=== PATIENT | female | born 1980 | race Caucasian/White ===

== ENCOUNTER 2019-06-19 13:55 | Emergency (ER) | payer OTHER, BC ==
[2019-06-19 14:04] VITALS: BP 148/95
[2019-06-19] MEDS ORDERED: IBUPROFEN 600 MG TABLET PO STA (14:17)
--- NOTE | 2019-06-19 14:49 | XRAY Report ---
Reason: twisted ankle Procedure Date: 06/19/2019 Accession Number: [id number] / [id number] Procedure: XR - Ankle 3 View RT CPT Code: Final Report FULL RESULT: EXAM: RIGHT ANKLE RADIOGRAPHY EXAM DATE: 06/19/2019 02:29 PM. CLINICAL HISTORY: Twisted ankle. COMPARISON: None. TECHNIQUE: 3 views. FINDINGS: Bones: Large plantar calcaneal spur. No fractures or bone lesions. Joints: No effusion. No subluxations. The ankle mortise is normally aligned. Soft Tissues: Moderate soft tissue swelling. IMPRESSION: Moderate soft tissue swelling. Large plantar calcaneal spur. No definite acute fracture. If symptoms persist suggest follow-up imaging in 7 -14 days. RADIA
--- NOTE | 2019-06-19 14:54 | ED Physician Documentation ---
PD HPI LOWER EXT INJURY - Stated complaint Stated Complaint: RT ANKLE PX - GLF - Chief complaint Chief Complaint: Trauma Ext - History obtained from History obtained from: Patient - History of Present Illness PD HPI LOW EXT INJURY LOCATION: Right, Ankle Type of injury: Twist (She states she tripped on some wires at work that were taped down with some tape but had become loosened. It caused an inversion twisting of her ankle in a forward fall onto her side and right gluteal. She was having pain with walking but was still able to ambulate. She noticed swelling develop over the next couple of hours. It is gotten more sore with the swelling. She denies other notable injuries. She has minimal tenderness in her buttock.) Where injury occurred: Work Timing - onset: How many hours ago (2), Today Timing - duration: Hours (2) Timing - details: Abrupt onset, Still present Worsened by: Palpating, Other (walking). No: Moving Associated symptoms: Tingling. 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 06/19/19 - Allergies Allergies/Adverse Reactions: Allergies Allergy/AdvReac Type Severity Reaction Status Date / Time No Known Drug Allergies Allergy Verified 06/19/19 14:04 - Social History Does the pt smoke?: No Smoking Status: Never smoker Does the pt have substance abuse?: No PD ED PE NORMAL - Vitals Vital signs reviewed: Yes - General General: Alert and oriented X 3, No acute distress, Well developed/nourished - Back Back: No spinal TTP - Derm Derm: Normal color, Warm and dry - Extremities Extremities: Other (The right ankle has tenderness predominantly over the anterior talofibular ligament area. There is some general swelling in the ankle both medial and lateral. There is really no medial tenderness. The Achilles is firm and intact. She is able to flex and extend at the ankle reasonably. There is some pain and guarding with inversion stress testing but no gross laxity felt. Normal sensation color and cap refill at the toes. No tenderness at the midfoot or toes.) - Neuro Neuro: Alert and oriented X 3, No motor deficit, No sensory deficit Results - Vitals Vitals: Vital Signs - 24 hr 06/19/19 13:59 Temperature 37.1 C Heart Rate 79 Respiratory 16 Rate Blood Pressure 148/95 H O2 Saturation 98 Oxygen O2 Source Room air - Rads (name of study) right ankle Radiology: Prelim report reviewed (Large calcaneal spur but no obvious fracture noted. Soft tissue swelling is seen.), See rad report PD MEDICAL DECISION MAKING - ED course Complexity details: reviewed results, considered differential, d/w patient Departure - Departure Disposition: 01 Home, Self Care Clinical Impression: Ankle sprain Qualifiers: Encounter type: initial encounter Involved ligament of ankle: anterior talofibular ligament Laterality: right Qualified Code(s): S93.491A - Sprain of other ligament of right ankle, initial encounter Condition: Stable Record reviewed to determine appropriate education?: Yes Instructions: ED Sprain Ankle W X Ray Follow-Up: Rajeev Bruno MD [Provider Admit Priv/Credential] - Comments: No signs of fracture on your x-ray. It does seem like a sprain of the anterior talofibular ligament. Use the Prashant wrap for swelling and elevate and rest your ankle often. Minimal walking on it today and tomorrow if you can. Use the ankle brace when up and around for the next 7 to 10 days to support the ligaments for healing. Recheck if not improved well over the next 7 to 10 days and pretty much resolved during that time. The swelling should decrease over 2 to 3 days. Tylenol ibuprofen as needed for pains. Discharge Date/Time: 06/19/19 15:12
== END 2019-06-19 15:12 | disposition home or self-care (01) ==
LOC: ED 13:55
DX: S93.491A Sprain of other ligament of right ankle, initial encounter (principal); W01.0XXA Fall on same level from slipping, tripping and stumbling without subsequent striking against object, initial encounter; Y93.01 Activity, walking, marching and hiking; Y92.89 Other specified places as the place of occurrence of the external cause; Y99.0 Civilian activity done for income or pay; E11.9 Type 2 diabetes mellitus without complications; Z79.84 Long term (current) use of oral hypoglycemic drugs
CPT/HCPCS: 1040M; 73610; 99283; 99284; A9270

== ENCOUNTER 2019-08-22 13:29 | Emergency (ER) | payer BC ==
[2019-08-22 14:04] LABS: BASOPHILS # (AUTO) 0.1 10^3/uL (0.0-0.1); EOSINOPHILS # (AUTO) 0.1 10^3/uL (0.0-0.7); LYMPHOCYTES # (AUTO) 2.5 10^3/uL (1.5-3.5); MEAN CORPUSCULAR HEMOGLOBIN 27.3 pg (27.0-31.0); MEAN CORPUSCULAR VOLUME 82.7 fL (81.0-99.0); MEAN PLATELET VOLUME 10.7 fL (7.9-10.8); MONOCYTES # (AUTO) 0.3 10^3/uL (0.0-1.0); MONOCYTES % (AUTO) 4.6 %; NEUTROPHILS % (AUTO) 57.1 %; PLT - PLATELET COUNT 215 10^3/uL (130-450); RED BLOOD COUNT 5.49 10^6/uL (4.20-5.40); RED CELL DISTRIBUTION WIDTH 12.6 % (12.0-15.0)
[2019-08-22 14:11] LABS: VBG BASE EXCESS -1.8 mmol/L (-2 - +2); VBG PCO2 36.7 mmHg (41-51); VBG PH 7.404 (7.31-7.41); VBG PO2 53.1 mmHg (25-47); VBG TOTAL CO2 23.6 mmol/L (24-29)
[2019-08-22 14:16] LABS: ALBUMIN 3.6 g/dL (3.2-5.5); BILIRUBIN,TOTAL 0.6 mg/dL (0.2-1.0); CALCIUM 9.2 mg/dL (8.5-10.3); CREATININE 0.6 mg/dL (0.4-1.0); TOTAL PROTEIN 7.3 g/dL (6.7-8.2)
[2019-08-22] MEDS ORDERED: SODIUM CHLORIDE 0.9% 1,000 ML IV STA ×2 (14:21→15:04)
[2019-08-22] MEDS ORDERED: INSULIN REGULAR HUMAN 100 UNIT/1 ML 10 ML MDV IVP STA ×2 (14:21→15:04)
--- NOTE | 2019-08-22 14:22 | ED Physician Documentation ---
History of Present Illness - Stated complaint Stated Complaint: High Blood Sugar - Chief complaint Chief Complaint: General - History obtained from History obtained from: Patient (39-year-old woman who was diagnosed with diabetes about 6 months ago. She had some trouble obtaining primary care follow-up mostly because of coronavirus. Currently on metformin, 500 mg twice a day and kind of a varying dose of Humulin 2-3 times a day. Today for unclear reasons her blood sugar was quite high, greater than 700. She feels fatigued and with some blurry vision and polyuria. Denies sore throat, runny nose, cough. No new meds.) Review of Systems Constitutional: reports: Fatigue. 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 06/19/19 Insulin Glargine [Lantus Solostar] 20 unit SUBQ DAILY #3 pen 08/22/19 Metformin HCl 1,000 mg PO BID #60 tablet 08/22/19 Sulfamethoxazole/Trimethoprim 1 each PO BID 7 Days #14 tablet 08/22/19 [Sulfamethoxazole-Tmp Ds Tablet] - Allergies Allergies/Adverse Reactions: Allergies Allergy/AdvReac Type Severity Reaction Status Date / Time No Known Drug Allergies Allergy Verified 08/22/19 13:36 - Social History Does the pt smoke?: No Smoking Status: Never smoker Does the pt have substance abuse?: No PD ED PE NORMAL - Vitals Vital signs reviewed: Yes - General General: Alert and oriented X 3, No acute distress - Abdomen Abdomen: Soft, Non tender - Back Back: No spinal TTP - Extremities Extremities: No edema, No calf tenderness / cord - Neuro Neuro: Alert and oriented X 3, Normal speech Results - Vitals Vitals: Vital Signs - 24 hr 08/22/19 08/22/19 08/22/19 13:37 14:50 15:16 Temperature 36.8 C 37.8 C H 36.5 C Heart Rate 101 H 83 93 Respiratory 20 16 16 Rate Blood Pressure 141/101 H 135/93 H 128/88 H O2 Saturation 98 98 98 08/22/19 08/22/19 15:53 16:18 Temperature 36.3 C L 36.4 C L Heart Rate 90 86 Respiratory 16 16 Rate Blood Pressure 138/87 H 140/88 H O2 Saturation 99 99 Oxygen O2 Source Room air - Labs Labs: Laboratory Tests 08/22/19 08/22/19 08/22/19 12:50 12:50 12:50 WBC 7.0 RBC 5.49 H Hgb 15.0 Hct 45.4 MCV 82.7 MCH 27.3 MCHC 33.0 RDW 12.6 Plt Count 215 MPV 10.7 Neut # (Auto) 4.0 Lymph # (Auto) 2.5 [place] # (Auto) 0.3 Eos # (Auto) 0.1 Baso # (Auto) 0.1 Absolute Nucleated RBC 0.00 Nucleated RBC % 0.0 VBG pH VBG pCO2 VBG pO2 VBG HCO3 VBG Total CO2 VBG O2 Saturation VBG Base Excess Sodium 131 L Potassium 4.4 Chloride 97 L Carbon Dioxide 23 Anion Gap 11.0 BUN 18 Creatinine 0.6 Estimated GFR (MDRD) 111 Glucose 605 H* POC Whole Bld Glucose Glycated Hemoglobin Estim Average Glucose Calcium 9.2 Total Bilirubin 0.6 AST 14 ALT 23 Alkaline Phosphatase 129 H Total Protein 7.3 Albumin 3.6 Globulin 3.7 Albumin/Globulin Ratio 1.0 Lipase 30 Urine Color Urine Clarity Urine pH Ur Specific [place] Urine Protein Urine Glucose (UA) Urine Ketones Urine Occult Blood Urine Nitrite Urine Bilirubin Urine Urobilinogen Ur Leukocyte Esterase Urine RBC Urine WBC Urine WBC Clumps Ur Squamous Epith Cells Urine Bacteria Ur Microscopic Review Urine Culture Comments Serum Ketones NEGATIVE 08/22/19 08/22/19 08/22/19 13:50 14:05 14:57 WBC RBC Hgb Hct MCV MCH MCHC RDW Plt Count MPV Neut # (Auto) Lymph # (Auto) [place] # (Auto) Eos # (Auto) Baso # (Auto) Absolute Nucleated RBC Nucleated RBC % VBG pH 7.404 VBG pCO2 36.7 L VBG pO2 53.1 H VBG HCO3 22.4 L VBG Total CO2 23.6 L VBG O2 Saturation 88.3 H VBG Base Excess -1.8 Sodium Potassium Chloride Carbon Dioxide Anion Gap BUN Creatinine Estimated GFR (MDRD) Glucose POC Whole Bld Glucose 415 H Glycated Hemoglobin 13.4 H Estim Average Glucose 338 H Calcium Total Bilirubin AST ALT Alkaline Phosphatase Total Protein Albumin Globulin Albumin/Globulin Ratio Lipase Urine Color Urine Clarity Urine pH Ur Specific [place] Urine Protein Urine Glucose (UA) Urine Ketones Urine Occult Blood Urine Nitrite Urine Bilirubin Urine Urobilinogen Ur Leukocyte Esterase Urine RBC Urine WBC Urine WBC Clumps Ur Squamous Epith Cells Urine Bacteria Ur Microscopic Review Urine Culture Comments Serum Ketones 08/22/19 15:02 WBC RBC Hgb Hct MCV MCH MCHC RDW Plt Count MPV Neut # (Auto) Lymph # (Auto) [place] # (Auto) Eos # (Auto) Baso # (Auto) Absolute Nucleated RBC Nucleated RBC % VBG pH VBG pCO2 VBG pO2 VBG HCO3 VBG Total CO2 VBG O2 Saturation VBG Base Excess Sodium Potassium Chloride Carbon Dioxide Anion Gap BUN Creatinine Estimated GFR (MDRD) Glucose POC Whole Bld Glucose Glycated Hemoglobin Estim Average Glucose Calcium Total Bilirubin AST ALT Alkaline Phosphatase Total Protein Albumin Globulin Albumin/Globulin Ratio Lipase Urine Color YELLOW Urine Clarity HAZY Urine pH 6.0 Ur Specific [place] 1.010 Urine Protein NEGATIVE Urine Glucose (UA) >=1000 H Urine Ketones NEGATIVE Urine Occult Blood NEGATIVE Urine Nitrite POSITIVE H Urine Bilirubin NEGATIVE Urine Urobilinogen 0.2 (NORMAL) Ur Leukocyte Esterase NEGATIVE Urine RBC 0-5 Urine WBC 11-25 H Urine WBC Clumps PRESENT Ur Squamous Epith Cells RARE Squamous Urine Bacteria Many H Ur Microscopic Review INDICATED Urine Culture Comments INDICATED Serum Ketones PD MEDICAL DECISION MAKING - ED course ED course: 39-year-old woman with type 2 diabetes presents with uncontrolled blood sugars, but no evidence of DKA. She was given divided doses of fluid boluses here and IV insulin with improvement into her normal range. We will up her metformin and start her on Lantus. Departure - Departure Disposition: 01 Home, Self Care Clinical Impression: Cystitis Uncontrolled type 2 diabetes mellitus Qualifiers: Glycemic state: with hyperglycemia Qualified Code(s): E11.65 - Type 2 diabetes mellitus with hyperglycemia Condition: Good Record reviewed to determine appropriate education?: Yes Instructions: Insulin Glargine injection Prescriptions: Insulin Glargine [Lantus Solostar] 20 unit SUBQ DAILY #3 pen Metformin HCl 1,000 mg PO BID #60 tablet Sulfamethoxazole/Trimethoprim [Sulfamethoxazole-Tmp Ds Tablet] 1 each PO BID 7 Days #14 tablet Comments: Continue your efforts to try to establish primary care as soon as possible. Return for new or worsening symptoms. I am increasing your metformin to 1000 mg twice a day, also starting you on a baseline dose of Lantus. You can increase the Lantus if you are blood sugars continue to be out of control, you can go up a couple units at a time every day.
[2019-08-22 14:53] LABS: HB2 TOTAL 15.9 g/dL; HEMOGLOBIN A1C 1.96 g/dL; HEMOGLOBIN A1C % 13.4 % (4.6-6.2)
[2019-08-22 15:22] LABS: BILIRUBIN,URINE NEGATIVE (NEGATIVE); GLUCOSE, URINE (UA) >=1000 mg/dL (NEGATIVE); KETONES,URINE (UA) NEGATIVE (NEGATIVE); LEUKOCYTE ESTERASE, URINE NEGATIVE (NEGATIVE); NITRITE,URINE POSITIVE (NEGATIVE); OCCULT BLOOD,URINE NEGATIVE (NEGATIVE); PROTEIN,URINE NEGATIVE (NEGATIVE); UROBILINOGEN,URINE 0.2 (NORMAL) E.U./dL (NORMAL)
[2019-08-22 15:29] LABS: BACTERIA,URINE Many /HPF (None Seen); CLARITY,URINE HAZY (CLEAR); RBC,URINE 0-5 /HPF (0-5); SQUAMOUS EPITHELIAL CELL,UR RARE Squamous (<= Few); WBC CLUMPS,URINE PRESENT
[2019-08-22 16:19] VITALS: BP 140/88
== END 2019-08-22 16:19 | disposition home or self-care (01) ==
LOC: ED 13:29
DX: E11.65 Type 2 diabetes mellitus with hyperglycemia (principal); Z79.4 Long term (current) use of insulin
CPT/HCPCS: 36415; 80053; 81001; 82009; 82803; 83036; 83690; 85025; 87077; 87086; 87181; 96360; 96361; 99283; 99284; J1815; 81003

== ENCOUNTER 2019-11-05 15:34 | Outpatient (CLI) | payer BC ==
[2019-11-05 18:29] LABS: BASOPHILS # (AUTO) 0.1 10^3/uL (0.0-0.1); BASOPHILS % (AUTO) 0.8 %; EOSINOPHILS # (AUTO) 0.2 10^3/uL (0.0-0.7); EOSINOPHILS % (AUTO) 2.5 %; HGB - HEMOGLOBIN 13.7 g/dL (12.0-16.0); LYMPHOCYTES # (AUTO) 2.7 10^3/uL (1.5-3.5); LYMPHOCYTES % (AUTO) 29.3 %; MEAN CORPUSCULAR HEMOGLOBIN 27.5 pg (27.0-31.0); MEAN CORPUSCULAR HGB CONC 32.5 g/dL (32.0-36.0); MEAN CORPUSCULAR VOLUME 84.4 fL (81.0-99.0); MEAN PLATELET VOLUME 10.5 fL (7.9-10.8); MONOCYTES # (AUTO) 0.5 10^3/uL (0.0-1.0); MONOCYTES % (AUTO) 5.6 %; NEUTROPHILS # (AUTO) 5.7 10^3/uL (1.5-6.6); NEUTROPHILS % (AUTO) 61.5 %; PLT - PLATELET COUNT 289 10^3/uL (130-450); RED BLOOD COUNT 4.99 10^6/uL (4.20-5.40); WHITE BLOOD COUNT 9.3 x10^3/uL (4.8-10.8)
[2019-11-05 18:30] LABS: ALBUMIN 3.9 g/dL (3.2-5.5); ALBUMIN/GLOBULIN RATIO 0.9 (1.0-2.2); BILIRUBIN,TOTAL 0.3 mg/dL (0.2-1.0); CALCIUM 9.2 mg/dL (8.5-10.3); CREATININE 0.7 mg/dL (0.4-1.0); TOTAL PROTEIN 8.1 g/dL (6.7-8.2)
== END 2019-11-05 23:59 | disposition home or self-care (01) ==
LOC: LAB.R 15:34
PROVIDERS: ATTEND Nurse Practitioner Family
DX: E86.0 Dehydration (principal); R50.9 Fever, unspecified; Z20.828 Contact with and (suspected) exposure to other viral communicable diseases
CPT/HCPCS: 80053; 85025

== ENCOUNTER 2019-11-15 10:41 | Outpatient (CLI) | payer BC ==
[2019-11-15 10:54] LABS: BASOPHILS # (AUTO) 0.1 10^3/uL (0.0-0.1); BASOPHILS % (AUTO) 0.8 %; EOSINOPHILS # (AUTO) 0.3 10^3/uL (0.0-0.7); EOSINOPHILS % (AUTO) 2.9 %; HGB - HEMOGLOBIN 12.8 g/dL (12.0-16.0); LYMPHOCYTES # (AUTO) 3.4 10^3/uL (1.5-3.5); LYMPHOCYTES % (AUTO) 37.5 %; MEAN CORPUSCULAR HEMOGLOBIN 27.5 pg (27.0-31.0); MEAN CORPUSCULAR HGB CONC 32.5 g/dL (32.0-36.0); MEAN CORPUSCULAR VOLUME 84.5 fL (81.0-99.0); MEAN PLATELET VOLUME 9.3 fL (7.9-10.8); MONOCYTES # (AUTO) 0.4 10^3/uL (0.0-1.0); MONOCYTES % (AUTO) 4.6 %; NEUTROPHILS # (AUTO) 4.9 10^3/uL (1.5-6.6); NEUTROPHILS % (AUTO) 53.8 %; PLT - PLATELET COUNT 273 10^3/uL (130-450); RED BLOOD COUNT 4.66 10^6/uL (4.20-5.40); RED CELL DISTRIBUTION WIDTH 12.9 % (12.0-15.0); WHITE BLOOD COUNT 9.1 x10^3/uL (4.8-10.8)
[2019-11-15 11:12] LABS: ALBUMIN 3.6 g/dL (3.2-5.5); ALKALINE PHOSPHATASE 92 IU/L (42-121); ALT ALANINE AMINOTRANSFERASE 23 IU/L (10-60); AST ASPARTATE AMINOTRANSFERASE 12 IU/L (10-42); BILIRUBIN,TOTAL 0.4 mg/dL (0.2-1.0); BUN - BLOOD UREA NITROGEN 17 mg/dL (6-20); CARBON DIOXIDE - CO2 29 mmol/L (21-32); CHLORIDE 102 mmol/L (101-111); CHOL/HDL RATIO 3.4 (<4.4); CHOLESTEROL 129 mg/dL; CREATININE 0.6 mg/dL (0.4-1.0); GLUCOSE 117 mg/dL (70-100); HDL CHOLESTEROL 38 mg/dL; LDL CHOLESTEROL,CALCULATED 52 mg/dL; LDL/HDL RATIO 1.4 (<4.4); SODIUM 139 mmol/L (135-145); TOTAL PROTEIN 7.1 g/dL (6.7-8.2); VLDL CHOLESTEROL 39 mg/dL
[2019-11-15 11:16] LABS: CREATININE,URINE 89.7 mg/dL; MICROALBUM/CREATININE RATIO,UR 46.8 ug/mg (<30.0); MICROALBUMIN,URINE 4.2 mg/dL (0-300.0)
[2019-11-15 12:01] LABS: HEMOGLOBIN A1c% 8.8 % (4.27-6.07)
== END 2019-11-15 10:42 | disposition home or self-care (01) ==
LOC: LAB 10:41
PROVIDERS: ATTEND Physician Assistant
DX: E11.65 Type 2 diabetes mellitus with hyperglycemia (principal); Z79.4 Long term (current) use of insulin
CPT/HCPCS: 36415; 80053; 80061; 82043; 82570; 82607; 83036; 83721; 85025

== ENCOUNTER 2019-11-18 11:40 | Outpatient (CLI) | payer BC | END 2019-11-18 11:41 | disposition home or self-care (01) | LOC: LAB 11:40 | PROVIDERS: ATTEND Physician Assistant | DX: R11.2 Nausea with vomiting, unspecified (principal); E11.65 Type 2 diabetes mellitus with hyperglycemia | CPT/HCPCS: 36415; 81599; 83690; 84681 ==

== ENCOUNTER 2019-11-19 19:44 | Emergency (ER) | payer BC ==
--- NOTE | 2019-11-19 20:04 | ED Physician Documentation ---
PD HPI CHEST PAIN - Stated complaint Stated Complaint: CHEST PX - Chief complaint Chief Complaint: Cardiac - History obtained from History obtained from: Patient - History of Present Illness Timing - onset: Today (this morning) Timing - onset during: Rest Timing - details: Gradual onset Pain level now: 3 Quality: Other (burning) Location: Substernal, Epigastric Radiation: Other (radiates to left flank) Improved by: Nothing Worsened by: Other (no exacerbating factors) Associated symptoms: Nausea, Vomiting. No: Shortness of air, Diaphoresis, Feeling faint / dizzy, General Weakness, Palpitations, Cough Similar symptoms before: Has not had sx before Recently seen: Not recently seen - Additional information Additional information: woke up this morning with midline chest burning pain, with nausea and vomiting. had outpatient testing recently including blood tests 11/14 and lipase yesterday which was 104; patient was told pancreatitis was suspected and was to have outpatient epigastric US this evening but she presents to ED due to worsening pain. Review of Systems Constitutional: denies: Fever, Chills, Sweats Cardiac: reports: Chest pain / pressure. denies: Palpitations, Pedal edema, Calf pain Respiratory: reports: Reviewed and negative GI: reports: Abdominal Pain, Nausea, Vomiting. 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 - Past Surgical History Past Surgical History: Yes General: Cholecystectomy /HEATER HELPER: Hysterectomy - Present Medications Home Medications: Ambulatory Orders Medication Instructions Recorded Confirmed Metformin HCl 1,000 mg PO BID #60 tablet 08/22/19 10/18/19 Insulin Aspart [NovoLOG] 3 - 14 unit SUBQ TIDWM PRN 10/18/19 10/18/19 Insulin Glargine [Lantus Solostar] 30 unit SUBQ DAILY 10/18/19 10/18/19 Metoclopramide [Reglan] 10 mg PO Q6H PRN 10/18/19 10/18/19 Semaglutide [Ozempic] 0.25 mg SQ Q7D 10/18/19 10/18/19 Triamcinolone Acetonide 0.1% 1 gm TP DAILY 10/18/19 10/18/19 [Triamcinolone Acetonide] Lidocaine Viscous 2% [Xylocaine 15 ml PO TID PRN #1 bottle 11/19/19 Viscous 2%] Ondansetron Odt [Zofran] 4 mg TL Q6H PRN #10 tablet 11/19/19 - Allergies Allergies/Adverse Reactions: Allergies Allergy/AdvReac Type Severity Reaction Status Date / Time No Known Drug Allergies Allergy Verified 08/22/19 13:36 - Living Situation Living Arrangement: reports: At home - Social History Does the pt smoke?: No Smoking Status: Never smoker Does the pt have substance abuse?: No PD ED PE NORMAL - Vitals Vital signs reviewed: Yes - General General: Alert and oriented X 3, No acute distress, Well developed/nourished - Cardiac Cardiac: RRR, No murmur, No gallop, No rub - Respiratory Respiratory: No respiratory distress, Clear bilaterally - Abdomen Abdomen: Soft, Non distended, Other (mild/moderate TTP epigastrium and LUQ without rebound or guarding) - Back Back: No CVA TTP - Derm Derm: Normal color, Warm and dry, No rash - Extremities Extremities: No edema Results - Vitals Vitals: Vital Signs - 24 hr 11/19/19 11/19/19 11/19/19 20:08 20:44 21:21 Temperature 36.8 C Heart Rate 87 85 85 Respiratory 20 16 22 Rate Blood Pressure 153/99 H 153/99 H 116/79 O2 Saturation 100 96 99 11/19/19 11/19/19 11/19/19 21:38 22:11 22:56 Temperature 36.9 C Heart Rate 89 82 82 Respiratory 15 12 24 Rate Blood Pressure 130/91 H 112/85 H 151/89 H O2 Saturation 95 100 97 Oxygen O2 Source Room air - EKG (time done) No standard instances Rate: Rate (enter#) (77) Rhythm: NSR [place]: Normal Intervals: Normal [place] QRS: Normal Ischemia: Normal ST segments - Labs Labs: Laboratory Tests 11/19/19 11/19/19 11/19/19 20:05 20:05 20:05 WBC 10.1 RBC 5.04 Hgb 13.9 Hct 42.6 MCV 84.5 MCH 27.6 MCHC 32.6 RDW 13.1 Plt Count 290 MPV 9.9 Neut # (Auto) 5.3 Lymph # (Auto) 4.0 H [place] # (Auto) 0.4 Eos # (Auto) 0.3 Baso # (Auto) 0.1 Absolute Nucleated RBC 0.00 Nucleated RBC % 0.0 Sodium 139 Potassium 3.5 Chloride 100 L Carbon Dioxide 28 Anion Gap 11.0 BUN 15 Creatinine 0.6 Estimated GFR (MDRD) 111 Glucose 124 H Calcium 9.6 Total Bilirubin 0.5 AST 15 ALT 21 Alkaline Phosphatase 89 Troponin I High Sens 2.6 Total Protein 8.2 Albumin 4.3 Globulin 3.9 Albumin/Globulin Ratio 1.1 Lipase 32 - Rads (name of study) chest xray Radiology: Prelim report reviewed, See rad report CT A/P Radiology: Prelim report reviewed, See rad report PD MEDICAL DECISION MAKING - ED course Complexity details: reviewed results, re-evaluated patient, considered differential, d/w patient Departure - Departure Disposition: 01 Home, Self Care Clinical Impression: Chest pain, Abdominal pain Condition: Good Instructions: ED Abdominal Pain Unkn Cause, ED Chest Pain Atypical Unkn Cause Follow-Up: Ifeoma Mock PA [Primary Care Provider] - Within 1 week Prescriptions: Lidocaine Viscous 2% [Xylocaine Viscous 2%] 15 ml PO TID PRN #1 bottle PRN Reason: Abdominal Pain Ondansetron Odt [Zofran] 4 mg TL Q6H PRN #10 tablet PRN Reason: Nausea / Vomiting Discharge Date/Time: 11/19/19 22:57
[2019-11-19 20:10] LABS: BASOPHILS # (AUTO) 0.1 10^3/uL (0.0-0.1); BASOPHILS % (AUTO) 0.8 %; EOSINOPHILS # (AUTO) 0.3 10^3/uL (0.0-0.7); EOSINOPHILS % (AUTO) 2.9 %; HGB - HEMOGLOBIN 13.9 g/dL (12.0-16.0); LYMPHOCYTES % (AUTO) 40.2 %; MEAN CORPUSCULAR HEMOGLOBIN 27.6 pg (27.0-31.0); MEAN CORPUSCULAR HGB CONC 32.6 g/dL (32.0-36.0); MEAN CORPUSCULAR VOLUME 84.5 fL (81.0-99.0); MEAN PLATELET VOLUME 9.9 fL (7.9-10.8); MONOCYTES # (AUTO) 0.4 10^3/uL (0.0-1.0); MONOCYTES % (AUTO) 3.6 %; NEUTROPHILS # (AUTO) 5.3 10^3/uL (1.5-6.6); NEUTROPHILS % (AUTO) 52.2 %; PLT - PLATELET COUNT 290 10^3/uL (130-450); RED BLOOD COUNT 5.04 10^6/uL (4.20-5.40); RED CELL DISTRIBUTION WIDTH 13.1 % (12.0-15.0); WHITE BLOOD COUNT 10.1 x10^3/uL (4.8-10.8)
[2019-11-19 20:24] LABS: ALBUMIN 4.3 g/dL (3.2-5.5); ALBUMIN/GLOBULIN RATIO 1.1 (1.0-2.2); BILIRUBIN,TOTAL 0.5 mg/dL (0.2-1.0); CALCIUM 9.6 mg/dL (8.5-10.3); CREATININE 0.6 mg/dL (0.4-1.0); TOTAL PROTEIN 8.2 g/dL (6.7-8.2)
--- NOTE | 2019-11-19 20:36 | XRAY Report ---
PROCEDURE: Chest 1 View X-Ray INDICATIONS: Chest pain TECHNIQUE: One view of the chest was acquired. COMPARISON: No previous study is available for comparison. FINDINGS: Surgical changes and devices: None. Lungs and pleura: No pleural effusions or pneumothorax. Lungs are clear. Mediastinum: Mediastinal contours appear normal. Heart size is normal. Bones and chest wall: No suspicious bony lesions. Overlying soft tissues appear unremarkable. IMPRESSION: No acute cardiopulmonary abnormality. Reviewed by: Patric English MD on 11/19/2019 8:34 PM PDT Approved by: Patric English MD on 11/19/2019 8:34 PM PDT Station ID: [id number]
[2019-11-19] MEDS ORDERED: ONDANSETRON 4 MG/2 ML VIAL IVP STA (21:00)
[2019-11-19] MEDS ORDERED: MAG HYDROX/AL HYDROX/SIMETH 30 ML UDC PO STA (21:00)
[2019-11-19] MEDS ORDERED: LIDOCAINE VISCOUS 2% 15 ML UDC MM STA (21:00)
[2019-11-19] MEDS ORDERED: PANTOPRAZOLE 40 MG VIAL IVP STA (21:01)
[2019-11-19] MEDS ORDERED: SODIUM CHLORIDE 0.9% 1,000 ML IV STA (21:01)
[2019-11-19] MEDS ORDERED: IOVERSOL 320 100 ML VIAL IVP ONE ×2 (21:23→21:42)
--- NOTE | 2019-11-19 22:07 | CT Report ---
PROCEDURE: Abdomen/Pelvis W INDICATIONS: LUQ/epigastric pain CONTRAST: IV CONTRAST: Optiray 320 ml: 100 PO CONTRAST: *NO PO CONTRAST TECHNIQUE: After the administration of IV contrast, 5 mm thick sections acquired from the diaphragms to the symp hysis. 5 mm thick coronal and sagittal reformats were acquired. For radiation dose reduction, the f ollowing was used: automated exposure control, adjustment of mA and/or kV according to patient size. COMPARISON: None. FINDINGS: Image quality: Excellent. ABDOMEN: Lung bases: Lung bases are clear. Heart size is normal. Solid organs: Liver and spleen are normal in size and enhancement. Gallbladder is surgically absent . Biliary system is non dilated. Pancreas enhances normally. No adrenal nodules. The right kidney is slightly small with cortical irregularity that is most likely related to chronic scarring. A tiny 2 mm nonobstructing calculus is seen in the inferior pole of the right kidney. There is no hydronephr osis. Peritoneum and bowel: Bowel loops demonstrate normal wall thickness and caliber. The appendix is no t definitely visualized, but there are no secondary signs of acute appendicitis. No free fluid or air . Nodes and vessels: No retroperitoneal or mesenteric adenopathy by size criteria. Aorta and inferior vena cava are normal in size. Miscellaneous: There is a small fat-containing periumbilical hernia. PELVIS: Genitourinary: Bladder wall thickness is normal. The uterus is surgically absent. No adnexal mass i s seen. Miscellaneous: No inguinal hernias or adenopathy. Bones: No suspicious bony lesions. No vertebral body compression fractures. Mild degenerative ortiz ges are seen in the spine. A sclerotic lesion in the left proximal femur is most likely a benign bone island. IMPRESSION: Nonobstructing 2 mm calculus in the inferior pole of the right kidney. Chronic renal cortical scarrin g is noted. No hydronephrosis. Reviewed by: Patric English MD on 11/19/2019 10:05 PM PDT Approved by: Patric English MD on 11/19/2019 10:05 PM PDT Station ID: [id number]
[2019-11-19 22:57] VITALS: BP 151/89
== END 2019-11-19 22:57 | disposition home or self-care (01) ==
LOC: ED 19:44
DX: R07.9 Chest pain, unspecified (principal); R10.9 Unspecified abdominal pain; E11.9 Type 2 diabetes mellitus without complications; Z79.4 Long term (current) use of insulin
CPT/HCPCS: 36415; 71045; 74177; 80053; 83690; 84484; 85025; 93005; 96361; 96374; 96375; 99284; A9270; Q9967

== ENCOUNTER 2020-01-13 20:09 | Emergency (ER) | payer OTHER, BC ==
--- NOTE | 2020-01-13 21:45 | XRAY Report ---
PROCEDURE: Wrist 4 View RT INDICATIONS: pain after use TECHNIQUE: 4 views of the wrist were acquired. COMPARISON: None FINDINGS: Bones: No fractures or dislocations. No suspicious bony lesions. Scaphoid view: Intact Soft tissues: No suspicious soft tissue calcifications. IMPRESSION: Intact right wrist. Reviewed by: Hortencia Styles MD on 01/13/2020 9:44 PM PDT Approved by: Hortencia Styles MD on 01/13/2020 9:44 PM PDT Station ID: [id number]
--- NOTE | 2020-01-13 21:56 | ED Physician Documentation ---
PD HPI UPPER EXT INJURY - Stated complaint Stated Complaint: RT WRIST INJ - Chief complaint Chief Complaint: Ext Problem - History obtained from History obtained from: Patient - History of Present Illness Location: Right, Wrist Type of injury: Blunt / blow Where injury occurred: Work Timing - onset: How many weeks ago (2) Timing - duration: Weeks (2) Timing - details: Gradual onset, Still present Improved by: Rest, Immobilization Worsened by: Moving, Palpating Associated symptoms: No: Weakness, Numbness, Tingling, Swelling, Discolored Contributing factors: Work related. 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 She recalls that she was holding the patient's arm down with some force and following that she did not have significant pain in her arm until about 4 days later. She began to have increasing pain and despite passage of 2 weeks pain is becoming worse and she is having some difficulty with tasks using the right hand and thumb. 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: Uterine cancer - Past Surgical History Past Surgical History: Yes General: Cholecystectomy /SURGICAL BRACE MAKER: Hysterectomy - Present Medications Home Medications: Ambulatory Orders Medication Instructions Recorded Confirmed Metformin HCl 1,000 mg PO BID #60 tablet 08/22/19 10/18/19 Insulin Aspart [NovoLOG] 3 - 14 unit SUBQ TIDWM PRN 10/18/19 10/18/19 Insulin Glargine [Lantus Solostar] 30 unit SUBQ DAILY 10/18/19 10/18/19 Metoclopramide [Reglan] 10 mg PO Q6H PRN 10/18/19 10/18/19 Semaglutide [Ozempic] 0.25 mg SQ Q7D 10/18/19 10/18/19 Triamcinolone Acetonide 0.1% 1 gm TP DAILY 10/18/19 10/18/19 [Triamcinolone Acetonide] Lidocaine Viscous 2% [Xylocaine 15 ml PO TID PRN #1 bottle 11/19/19 Viscous 2%] Ondansetron Odt [Zofran] 4 mg TL Q6H PRN #10 tablet 11/19/19 - Allergies Allergies/Adverse Reactions: Allergies Allergy/AdvReac Type Severity Reaction Status Date / Time No Known Drug Allergies Allergy Verified 01/13/20 20:15 - Social History Does the pt smoke?: No Smoking Status: Never smoker Does the pt drink ETOH?: No Does the pt have substance abuse?: No - Immunizations Immunizations are current?: Yes - POLST Patient has POLST: No PD ED PE NORMAL - Vitals Vital signs reviewed: Yes (hpyertensive ) - General General: Alert and oriented X 3, No acute distress, Well developed/nourished - HEENT HEENT: Atraumatic, PERRL, EOMI - Respiratory Respiratory: No respiratory distress - Derm Derm: Normal color, Warm and dry, No rash - Extremities Extremities: No deformity, No edema, Other (there is tenderness to the right distal radius and the anatomic snuff box. There is no deformity, discoloration or swelling noted. distal n/v is intact and flex ext of the wrist casues mild pain. 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, No motor deficit, No sensory deficit, Normal speech Eye Opening: Spontaneous Motor: Obeys Commands Verbal: Oriented GCS Score: 15 - Psych Psych: Normal mood, Normal affect Results - Vitals Vitals: Vital Signs - 24 hr 01/13/20 01/13/20 01/13/20 20:15 20:21 22:19 Temperature 36.5 C 36.5 C 36.5 C Heart Rate 98 98 92 Respiratory 16 16 16 Rate Blood Pressure 148/95 H 148/95 H 145/92 H O2 Saturation 100 100 100 Oxygen O2 Source Room air - Rads (name of study) wrist Radiology: Prelim report reviewed (Impression: intact right wrist), EMP read indepedently, See rad report Procedures - Splint (location) right wrist Splint applied by: Tech Type of splint: Fiberglass, Volar cock up Other: Patient tolerated well, No complications, Neurovascular intact, Good alignment PD MEDICAL DECISION MAKING - ED course Complexity details: reviewed results, re-evaluated patient, considered differential, d/w patient ED course: 39 y/o female with a sprained right wrist is placed into a volar cock-up splint and she is given a note for work for 5 days. I have indicated to the patient she may need to wear a brace on her wrist for up to 2 weeks. Departure - Departure Disposition: 01 Home, Self Care Clinical Impression: Right wrist sprain Qualifiers: Encounter type: initial encounter Qualified Code(s): S63.501A - Unspecified sprain of right wrist, initial encounter Condition: Stable Instructions: ED Sprain Wrist Follow-Up: Ifeoma Mock PA [Primary Care Provider] - Forms: Activity restrictions Discharge Date/Time: 01/13/20 22:19
[2020-01-13 22:21] VITALS: BP 145/92
== END 2020-01-13 22:19 | disposition home or self-care (01) ==
LOC: ED 20:09
DX: S63.501A Unspecified sprain of right wrist, initial encounter (principal); X58.XXXA Exposure to other specified factors, initial encounter; Y93.89 Activity, other specified; Y92.538 Other ambulatory health services establishments as the place of occurrence of the external cause; Y99.0 Civilian activity done for income or pay; E11.9 Type 2 diabetes mellitus without complications; Z79.4 Long term (current) use of insulin
CPT/HCPCS: 1040M; 73110

== ENCOUNTER 2020-01-27 15:53 | Outpatient (CLI) | payer OTHER, BC ==
--- NOTE | 2020-01-27 17:33 | XRAY Report ---
PROCEDURE: Wrist 3 View RT INDICATIONS: OTHER SPECIFIED SPRAIN FT WRIST/SEQUELA TECHNIQUE: 3 views of the wrist were acquired. COMPARISON: Wrist x-ray 01/13/2020 FINDINGS: Bones: There is a questionable lucency along the dorsal aspect of the radius. This was not well-seen on prior exam. No suspicious bony lesions. Scaphoid view: Not obtained. Soft tissues: No suspicious soft tissue calcifications. IMPRESSION: Partial posterior radial cortical lucency. Nondisplaced fracture cannot be definitively excluded and recommend correlation of point tenderness. Short interval imaging follow-up is recommended. Reviewed by: Rebecca Anne MD on 01/27/2020 5:32 PM PST Approved by: Rebecca Anne MD on 01/27/2020 5:32 PM PST Station ID: [id number]
== END 2020-01-27 15:54 | disposition home or self-care (01) ==
LOC: DI 15:53
PROVIDERS: ATTEND Physician Assistant
DX: R93.6 Abnormal findings on diagnostic imaging of limbs (principal)

== ENCOUNTER 2020-03-26 09:29 | Outpatient (CLI) | payer BC, OTHER ==
[2020-03-26 09:54] LABS: ALBUMIN 4.2 g/dL (3.2-5.5); ALBUMIN/GLOBULIN RATIO 1.2 (1.0-2.2); BILIRUBIN,TOTAL 0.4 mg/dL (0.2-1.0); CALCIUM 9.7 mg/dL (8.5-10.3); CREATININE 0.7 mg/dL (0.4-1.0); POTASSIUM 4.5 mmol/L (3.5-5.0); TOTAL PROTEIN 7.6 g/dL (6.7-8.2)
[2020-03-26 13:54] LABS: ESTIMATED AVERAGE GLUCOSE 166 mg/dL (70-100); HEMOGLOBIN A1c% 7.4 % (4.27-6.07)
== END 2020-03-26 09:30 | disposition home or self-care (01) ==
LOC: LAB 09:29
PROVIDERS: ATTEND Physician Assistant
DX: E11.65 Type 2 diabetes mellitus with hyperglycemia (principal)
CPT/HCPCS: 36415; 80053; 83036

== ENCOUNTER 2020-04-16 12:58 | Outpatient (CLI) | payer OTHER, BC ==
--- NOTE | 2020-04-16 15:47 | MRI Report ---
PROCEDURE: Wrist RT W/O INDICATIONS: RT WRIST DEQUERVAINS TENOSYNOVITIS TECHNIQUE: Noncontrast coronal proton density fast spin echo and T2 fast spin echo with fat saturation; coronal 3-D gradient echo, axial T1 spin echo and T2 fast spin echo with fat saturation, sagittal T1 spin ech o through the wrist. COMPARISON: None. FINDINGS: Image quality: Excellent. Bones and cartilage: The carpal bones are normally aligned. No bone marrow contusions or fractures. No evidence for avascular necrosis. Overlying cartilage surfaces appear normal. Carpal ligaments: The scapholunate and lunotriquetral ligaments appear intact. In the absence of in tra-articular contrast, the extrinsic carpal ligaments are not well identified. On sagittal images, the pisohamate ligament appears intact. Triangular fibrocartilage complex: The triangular fibrocartilage appears intact. The adjacent menis greg homolog appears normal in the absence of intra-articular contrast. The extensor carpi ulnaris te ndon is mildly thickened with surrounding edema and synovial thickening at the level of ulnar styloid tip. Tendons and soft tissues: Edematous thickening of the extensor pollicis brevis and abductor pollicis longus tendons at the level of radial styloid is seen with mild thickening of overlying synovial duncan th concerning for tenosynovitis. The carpal tunnel structures appear normal, including the median ner ve. The ulnar nerve appears normal within Guyon?s canal. Rest of the extensor tendon compartments de monstrate normal morphology, without pathologic tendon sheath fluid. There is suggestion of a 6 x 3 x 6 mm ganglion cyst over dorsal aspect of the proximal carpal deep to the extensor digitorum tendons. IMPRESSION: 1. Finding is consistent with tenosynovitis involving the abductor pollicis longus tendon and extenso r pollicis longus tendon at the level of radial styloid. 2. Suggestion of low-grade tenosynovitis involving extensor carpi naris tendon at the level of ulnar styloid tip. Rest of the tendons and ligaments are intact. 3. Suggestion of a 6 x 3 x 6 mm ganglion cyst over dorsum of proximal carpal bones deep to the extens or digitorum tendons. 4. No marrow edema. No fracture or dislocation. Triangular fibrocartilage complex is grossly intact. Intrinsic and extrinsic wrist ligaments are grossly intact. Reviewed by: Thor Correa MD on 04/16/2020 3:46 PM PST Approved by: Thor Correa MD on 04/16/2020 3:46 PM PST Station ID: [id number]
== END 2020-04-16 12:59 | disposition home or self-care (01) ==
LOC: DI 12:58
PROVIDERS: ATTEND Physician Assistant
DX: M65.4 Radial styloid tenosynovitis [de Quervain] (principal)

== ENCOUNTER 2020-04-28 10:54 | Outpatient (CLI) | payer BC, OTHER | END 2020-04-28 10:55 | disposition home or self-care (01) | LOC: LAB 10:54 | PROVIDERS: ATTEND Physician Assistant | DX: E11.9 Type 2 diabetes mellitus without complications (principal) | CPT/HCPCS: 81599; 86341 ==

== ENCOUNTER 2020-09-06 13:10 | Outpatient (CLI) | payer OTHER, BC ==
--- NOTE | 2020-09-06 19:01 | XRAY Report ---
PROCEDURE: Chest 2 View X-Ray INDICATIONS: COUGH TECHNIQUE: 2 view(s) of the chest. COMPARISON: 10/30/2019 FINDINGS: Surgical changes and devices: Cholecystectomy clips are seen. Lungs and pleura: No pleural effusions or pneumothorax. Lungs are clear. Mediastinum: Mediastinal contours are normal. Heart size is normal. Bones and chest wall: No suspicious bony abnormalities. Soft tissues appear unremarkable. IMPRESSION: No acute cardiopulmonary process is seen. No infiltrates. Reviewed by: Vincent Tran MD on 09/06/2020 5:59 PM AKDT Approved by: Vincent Tran MD on 09/06/2020 5:59 PM AKDT Station ID: [id number]
== END 2020-09-06 23:59 | disposition home or self-care (01) ==
LOC: DI.N 13:10
PROVIDERS: ATTEND Family Medicine
DX: R05 Cough (principal); U07.1 COVID-19

== ENCOUNTER 2020-09-24 09:15 | Outpatient (CLI) | payer BC, OTHER | END 2020-09-24 23:59 | disposition home or self-care (01) | LOC: LAB.R 09:15 | PROVIDERS: ATTEND Family Medicine | DX: U07.1 COVID-19 (principal) ==

== ENCOUNTER 2020-10-11 11:09 | Outpatient (CLI) | payer OTHER, BC | END 2020-10-11 11:10 | disposition home or self-care (01) | LOC: LAB 11:09 | PROVIDERS: ATTEND Orthopaedic Surgery | DX: Z01.812 Encounter for preprocedural laboratory examination (principal); Z20.822 Contact with and (suspected) exposure to COVID-19 ==

== ENCOUNTER 2020-10-14 06:33 | Day surgery (SDC) | payer OTHER, BC ==
[2020-10-14] MEDS ORDERED: fentaNYL 100 MCG/2 ML VIAL IVP ONE (06:34)
[2020-10-14] MEDS ORDERED: PROPOFOL 200 MG/20 ML VIAL IVP ONE (06:34)
[2020-10-14] MEDS ORDERED: ONDANSETRON 4 MG/2 ML VIAL IVP ONE (06:34)
[2020-10-14] MEDS ORDERED: diphenhydrAMINE INJ 50 MG/ML VIAL IVP ONE (06:34)
[2020-10-14] MEDS ORDERED: LIDOCAINE-MPF 2% 5 ML VIAL TD ONE (06:34)
[2020-10-14] MEDS ORDERED: MIDAZOLAM 2 MG/2 ML VIAL IVP ONE (06:34)
[2020-10-14] MEDS ORDERED: METOCLOPRAMIDE 10 MG/2 ML VIAL IVP ONE (06:34)
[2020-10-14] MEDS ORDERED: ceFAZolin 2 GM/50 ML 2 GM/50 ML BAG IV ONE (06:34)
[2020-10-14] MEDS ORDERED: DEXAMETHASONE 4 MG/ML VIAL IVP ONE (06:34)
[2020-10-14] MEDS ORDERED: LACTATED RINGERS 1,000 ML IV ONE ×2 (06:44→08:36)
[2020-10-14] MEDS ORDERED: LIDOCAINE MPF 2%-EPI 1:200000 20 ML VIAL ONE (07:02)
[2020-10-14] MEDS ORDERED: BUPIVACAINE 0.5% PF 30 ML VIAL ONE (07:02)
--- NOTE | 2020-10-14 07:13 | ANESTHESIA ---
Pre-Anesthesia VS, & Labs - Diagnosis right wrist tendonitis - Procedure right wrist extensor tendon release Vital Signs: Temp Pulse Resp BP Pulse Ox 36.5 C 104 H 25 H 132/87 H 100 10/14/20 06:50 10/14/20 06:50 10/14/20 06:50 10/14/20 06:50 10/14/20 06:50 Height: 5 ft 1 in Weight (kg): 95.8 kg Body Mass Index: 39.9 BMI Classification: Obese - NPO >8 hours - Is Patient ?: Yes Home Medications and Allergies Home Medications: Ambulatory Orders Pravastatin [Pravachol] 20 mg PO QPM 10/12/20 Insulin Aspart [NovoLOG] 3 - 14 unit SUBQ TIDWM PRN 10/18/19 Insulin Glargine [Lantus Solostar] 20 unit SUBQ BID 10/18/19 Metoclopramide [Reglan] 10 mg PO Q6H PRN 10/18/19 Semaglutide [Ozempic] 0.5 mg SQ Q7D 10/18/19 Empagliflozin [Jardiance] 25 mg PO DAILY 09/03/20 Lisinopril [Zestril] 2.5 mg PO DAILY 09/03/20 Pravastatin [Pravachol] 20 mg PO QPM 10/12/20 Allergies/Adverse Reactions: Allergies Allergy/AdvReac Type Severity Reaction Status Date / Time No Known Drug Allergies Allergy Verified 01/13/20 20:15 Anes History & Medical History - Anesthetic History Anesthesia Complications: reports: No previous complications - Medical History Cardiovascular: reports: Hypertension, High cholesterol Pulmonary: reports: Asthma Gastrointestinal: reports: Other Urinary: reports: Chronic bladder infection Musculoskeletal: reports: None Endocrine/Autoimmune: reports: Type 2 diabetes Skin: reports: None Smoking Status: Never smoker - Surgical History General: reports: Cholecystectomy, Colonoscopy Gynecologic: reports: Hysterectomy Exam General: Alert Dental: WNL Mouth Opening: Greater than 4 Fingerbreadths Neck Mobility: Normal Mallampati classification: II Respiratory: Lungs clear Cardiovascular: Regular rate Plan Anesthesia Type: General Consent for Procedure(s) Verified and Reviewed: Yes Code Status: Attempt Resuscitation ASA classification: 2-Mild systemic disease Is this case an emergency?: No
[2020-10-14] MEDS ORDERED: KETOROLAC 15 MG/ML VIAL IVP STA (07:18)
[2020-10-14] MEDS ORDERED: oxyCODONE 5 MG TABLET PO PRN (07:18)
[2020-10-14] MEDS ORDERED: NALOXONE 0.4 MG/ML VIAL IVP PRN (07:29)
[2020-10-14] MEDS ORDERED: MORPHINE 2 MG/ML CARPUJECT IVP PRN (07:29)
[2020-10-14] MEDS ORDERED: HYDROmorphone 0.5 MG/0.5 ML SYRINGE IVP PRN (07:29)
[2020-10-14] MEDS ORDERED: ONDANSETRON 4 MG/2 ML VIAL IVP PRN (07:29)
[2020-10-14] MEDS ORDERED: ePHEDrine 50 MG/ML VIAL IVP PRN (07:29)
[2020-10-14] MEDS ORDERED: fentaNYL 100 MCG/2 ML VIAL IVP PRN (07:29)
[2020-10-14] MEDS ORDERED: METOCLOPRAMIDE 10 MG/2 ML VIAL IVP PRN (07:29)
[2020-10-14] MEDS ORDERED: ATROPINE ABBOJECT 1 MG/10 ML SYRINGE IVP PRN (07:29)
[2020-10-14] MEDS ORDERED: BUPIVACAINE 0.5% PF 30 ML VIAL SUBQ ONE ×2 (07:59→08:24)
[2020-10-14] MEDS ORDERED: LIDOCAINE MPF 2%-EPI 1:200000 20 ML VIAL SUBQ ONE ×2 (07:59→08:24)
[2020-10-14] MEDS ORDERED: LACTATED RINGERS 1,000 ML IV SCH (08:00)
--- NOTE | 2020-10-14 08:29 | OPERATIVE REPORT ---
Operative Report - General Procedure Date: 10/14/20 Planned Procedure: Release of first extensor compartment right wrist Pre-Op Diagnosis: DeQuervain's tenosynovitis right wrist Procedure Performed: Release left first extensor compartment right wrist Post Op Diagnosis: Same as preoperative diagnosis - Procedure Note Primary Surgeon: Johnie Case MD Secondary Surgeon: Hunter ISAACS Anesthesia Provider: Hazel Huber CRNA Anesthesia Technique: General mask Estimated Blood Loss (mL): 5 Indications: This is a 40-year-old woman with chronic radial sided right wrist pain with localized tenderness over the first extensor compartment, positive Fabian test. She has diabetes mellitus. She has normal routine radiographs. Her MRI scan suggested tenosynovitis of the first extensor compartment right wrist Findings: The tendons of the first extensor compartment appeared normal there was more than one slip of the extensor pollicis brevis. Complications: None
[2020-10-14] MEDS ORDERED: KETOROLAC 15 MG/ML VIAL ONE (09:06)
[2020-10-14 09:22] VITALS: BP 123/90
--- NOTE | 2020-10-14 11:37 | ANESTHESIA POST OP EVALUATION ---
Anesthesia Post Eval - Post Anesthesia Eval Vitals: Last Vital Signs Temp 36.7 C 10/14/20 09:21 Pulse 92 10/14/20 09:21 Resp 16 10/14/20 09:21 BP 123/90 H 10/14/20 09:21 Pulse Ox 95 10/14/20 09:21 CV Function Including HR & BP: Stable Pain Control: Satisfactory Nausea & Vomiting: Negative Mental Status: Baseline Respiratory Status: Airway Patent Hydration Status: Satisfactory Anesthesia Complications: None
== END 2020-10-14 06:34 | disposition home or self-care (01) ==
LOC: SDS 06:33
PROVIDERS: ATTEND Orthopaedic Surgery
DX: M65.4 Radial styloid tenosynovitis [de Quervain] (principal); E11.9 Type 2 diabetes mellitus without complications; E66.9 Obesity, unspecified; Z68.39 Body mass index [BMI] 39.0-39.9, adult; Z79.4 Long term (current) use of insulin
CPT/HCPCS: 25000; J0690; J1200; J2765; J7120